=== PATIENT | male | born 1970 | race Caucasian/White ===

== ENCOUNTER 2021-03-19 14:47 | Inpatient (IN) | payer OTHER ==
[2021-03-19] MEDS ORDERED: BUPRENORPHINE HCL 150 MCG, BUPRENORPHINE HCL 75 MCG BC ONE (15:36)
[2021-03-19] MEDS ORDERED: MAGNESIUM HYDROX 2400MG/30ML ORAL SUSPENSION 30 ML CUP PO PRN (15:36)
[2021-03-19] MEDS ORDERED: MENTHOL/PHENOL 1 EACH UD MM PRN (15:36)
[2021-03-19] MEDS ORDERED: MAG HYDROX/AL HYDROX/SIMETH 30 ML UNIT-DOSE CUP PO PRN (15:36)
[2021-03-19] MEDS ORDERED: BISMUTH SUBSALICYLATE 524 MG/30 ML PO PRN (15:36)
[2021-03-19] MEDS ORDERED: diazePAM 5 MG TABLET PO PRN (15:36)
[2021-03-19] MEDS ORDERED: ONDANSETRON *ODT* 4 MG TABLET SL PRN (15:36)
[2021-03-19] MEDS ORDERED: cloNIDine HCL 0.1 MG TABLET PO ONE (15:36)
[2021-03-19] MEDS ORDERED: ACETAMINOPHEN 325 MG TABLET (FP) PO PRN ×2 (15:36)
[2021-03-19] MEDS ORDERED: MAGNESIUM CITRATE 300 ML BOTTLE PO PRN (15:36)
[2021-03-19 15:55] VITALS: BMI 27.6
[2021-03-20] MEDS: hydrOXYzine PAMOATE 25 MG CAPSULE (FP) PO SCH ×7 (01:49→22:21)
[2021-03-20] MEDS: NICOTINE 14 MG/24 HOURS TOPICAL PATCH TD SCH ×2 (01:49→11:10)
[2021-03-20] MEDS: PRENATAL VITAMINS W/ FOLIC ACID TABLET (FP) PO SCH ×2 (01:49→11:10)
[2021-03-20] MEDS ORDERED: METHOCARBAMOL 500 MG TABLET ONE (01:52)
[2021-03-20] MEDS ORDERED: IBUPROFEN 400 MG TABLET (FP) PO ONE (01:53)
[2021-03-20] MEDS: THIAMINE HCL 100 MG TABLET (FP) PO SCH ×2 (02:00→22:21)
[2021-03-20] MEDS: MELATONIN 5 MG TABLETS PO SCH ×2 (02:10→22:21)
[2021-03-20] MEDS: IBUPROFEN 400 MG TABLET (FP) PO PRN (02:23)
[2021-03-20] MEDS ORDERED: hydrOXYzine PAMOATE 25 MG CAPSULE (FP) PO ONE ×4 (02:30→10:46)
[2021-03-20] MEDS ORDERED: BUPRENORPHINE HCL 150 MCG FILM BC ONE ×4 (06:10→17:17)
[2021-03-20] MEDS ORDERED: BUPRENORPHINE HCL 75 MCG FILM BC ONE ×4 (06:11→17:17)
[2021-03-20] MEDS: BUPRENORPHINE HCL 150 MCG, BUPRENORPHINE HCL 75 MCG BC SCH ×2 (06:33→17:54)
[2021-03-20 10:58] LABS: HEMATOCRIT 36.9 % (35.4-49); HEMOGLOBIN 12.6 GM/dL (11.7-16.9); MEAN PLT VOLUME 9.5 fl (7.5-11.1); PLATELET COUNT 148 10^3/uL (134-434); RBC 4.06 M/mm3 (4.00-5.60); RDW 14.6 % (11.9-15.9); WHITE BLOOD COUNT 5.4 K/mm3 (4.0-10.0)
[2021-03-20] MEDS ORDERED: BUPRENORPHINE HCL 150 MCG, BUPRENORPHINE HCL 75 MCG BC ONE (11:00)
[2021-03-20 11:02] LABS: ALBUMIN 2.9 g/dl (3.4-5.0); BLOOD UREA NITROGEN 14.2 mg/dL (7-18); CALCIUM 7.9 mg/dL (8.5-10.1)
[2021-03-20 11:05] LABS: CREATININE 0.9 mg/dL (0.55-1.3)
[2021-03-20 11:06] LABS: BILIRUBIN,TOTAL 0.4 mg/dL (0.2-1); TOT PROT 5.7 g/dl (6.4-8.2)
[2021-03-20 11:52] LABS: HIV INTERPRETATION NEGATIVE (NEGATIVE)
[2021-03-20] MEDS: TOLNAFTATE 1% POWDER 45 GM POW TP SCH ×2 (13:25→22:44)
[2021-03-20] MEDS: BACITRACIN 0.9 GM PACKET TP SCH (13:26)
[2021-03-20] MEDS: METHOCARBAMOL 500 MG TABLET PO PRN (22:23)
[2021-03-20] MEDS: cloNIDine HCL 0.1 MG TABLET PO PRN (22:24)
[2021-03-21] MEDS: hydrOXYzine PAMOATE 25 MG CAPSULE (FP) PO SCH ×5 (05:31→22:13)
[2021-03-21] MEDS: BUPRENORPHINE HCL 450 MCG FILM BC SCH ×2 (05:32→17:29)
[2021-03-21] MEDS: PRENATAL VITAMINS W/ FOLIC ACID TABLET (FP) PO SCH (10:20)
[2021-03-21] MEDS: BACITRACIN 0.9 GM PACKET TP SCH (10:20)
[2021-03-21] MEDS: METHOCARBAMOL 500 MG TABLET PO PRN ×2 (10:20→22:16)
[2021-03-21] MEDS: IBUPROFEN 400 MG TABLET (FP) PO PRN ×2 (10:22→17:33)
[2021-03-21] MEDS: NICOTINE 14 MG/24 HOURS TOPICAL PATCH TD SCH (10:24)
[2021-03-21] MEDS: TOLNAFTATE 1% POWDER 45 GM POW TP SCH ×2 (10:24→22:40)
[2021-03-21] MEDS ORDERED: POTASSIUM CHLORIDE TABS 20 MEQ TABLET.ER (FP) PO ONE (12:33)
[2021-03-21] MEDS: CALCIUM 500MG/VIT-D 200 UNITS COMBO TABLET (FP) PO SCH ×2 (13:01→22:13)
[2021-03-21] MEDS: MELATONIN 5 MG TABLETS PO SCH (22:13)
[2021-03-21] MEDS: THIAMINE HCL 100 MG TABLET (FP) PO SCH (22:13)
[2021-03-21] MEDS: cloNIDine HCL 0.1 MG TABLET PO PRN (22:16)
[2021-03-22] MEDS: BUPRENORPHINE/NALOXONE 4 MG/1 MG FILM PACKET SL SCH ×2 (06:08→18:30)
[2021-03-22] MEDS: hydrOXYzine PAMOATE 25 MG CAPSULE (FP) PO SCH ×5 (06:08→21:39)
[2021-03-22] MEDS: METHOCARBAMOL 500 MG TABLET PO PRN ×3 (06:09→21:42)
[2021-03-22] MEDS: IBUPROFEN 400 MG TABLET (FP) PO PRN ×2 (06:09→15:43)
[2021-03-22] MEDS: PRENATAL VITAMINS W/ FOLIC ACID TABLET (FP) PO SCH (10:45)
[2021-03-22] MEDS: NICOTINE 14 MG/24 HOURS TOPICAL PATCH TD SCH (10:45)
[2021-03-22] MEDS: BACITRACIN 0.9 GM PACKET TP SCH (10:45)
[2021-03-22] MEDS: CALCIUM 500MG/VIT-D 200 UNITS COMBO TABLET (FP) PO SCH ×2 (10:45→21:39)
[2021-03-22] MEDS: cloNIDine HCL 0.1 MG TABLET PO PRN ×2 (10:45→15:43)
[2021-03-22] MEDS: TOLNAFTATE 1% POWDER 45 GM POW TP SCH ×2 (11:03→21:41)
[2021-03-22] MEDS ORDERED: ALBUTEROL SO4 HFA INHALER IH PRN (11:41)
[2021-03-22] MEDS: MELATONIN 5 MG TABLETS PO SCH (21:39)
[2021-03-22] MEDS: THIAMINE HCL 100 MG TABLET (FP) PO SCH (21:39)
[2021-03-23] MEDS: METHOCARBAMOL 500 MG TABLET PO PRN ×3 (05:22→20:01)
[2021-03-23] MEDS: hydrOXYzine PAMOATE 25 MG CAPSULE (FP) PO SCH ×5 (05:23→22:05)
[2021-03-23] MEDS ORDERED: BUPRENORPHINE/NALOXONE 8 MG/2 MG FILM PACKET SL ONE ×2 (06:00→18:00)
[2021-03-23] MEDS: PRENATAL VITAMINS W/ FOLIC ACID TABLET (FP) PO SCH (10:41)
[2021-03-23] MEDS: BACITRACIN 0.9 GM PACKET TP SCH (10:41)
[2021-03-23] MEDS: CALCIUM 500MG/VIT-D 200 UNITS COMBO TABLET (FP) PO SCH ×2 (10:41→22:05)
[2021-03-23] MEDS: TOLNAFTATE 1% POWDER 45 GM POW TP SCH ×2 (10:42→22:06)
[2021-03-23] MEDS: NICOTINE 10 MG CARTRIDGE (INHALER) IH PRN ×2 (10:43→19:58)
[2021-03-23] MEDS: NICOTINE 14 MG/24 HOURS TOPICAL PATCH TD SCH (10:43)
[2021-03-23] MEDS: IBUPROFEN 400 MG TABLET (FP) PO PRN ×2 (13:59→22:08)
[2021-03-23] MEDS: THIAMINE HCL 100 MG TABLET (FP) PO SCH (22:05)
[2021-03-23] MEDS: MELATONIN 5 MG TABLETS PO SCH (22:06)
[2021-03-24] MEDS: hydrOXYzine PAMOATE 25 MG CAPSULE (FP) PO SCH ×2 (05:29→10:41)
[2021-03-24] MEDS ORDERED: BUPRENORPHINE/NALOXONE 8 MG/2 MG FILM PACKET SL SCH ×2 (06:00→14:00)
[2021-03-24 09:23] VITALS: BP 137/78; PULSE 65; TEMP 96.9
[2021-03-24] MEDS: TOLNAFTATE 1% POWDER 45 GM POW TP SCH (10:41)
[2021-03-24] MEDS: NICOTINE 14 MG/24 HOURS TOPICAL PATCH TD SCH (10:41)
[2021-03-24] MEDS: CALCIUM 500MG/VIT-D 200 UNITS COMBO TABLET (FP) PO SCH (10:41)
[2021-03-24] MEDS: PRENATAL VITAMINS W/ FOLIC ACID TABLET (FP) PO SCH (10:41)
[2021-03-24] MEDS: BACITRACIN 0.9 GM PACKET TP SCH (10:41)
[2021-03-24] MEDS: METHOCARBAMOL 500 MG TABLET PO PRN (10:43)
[2021-03-24] MEDS: IBUPROFEN 400 MG TABLET (FP) PO PRN (10:43)
== END 2021-03-24 11:43 | disposition home or self-care (01) | DRG 773 ==
LOC: YASAS 14:47 → Y6N 03-20 10:48
PROVIDERS: ADMIT Allergy & Immunology; ATTEND Allergy & Immunology
PROC: HZ2ZZZZ Detoxification Services for Substance Abuse Treatment (ICD-10-PCS; principal; 2021-03-20)
DX: F11.23 Opioid dependence with withdrawal (principal); F14.20 Cocaine dependence, uncomplicated; F17.210 Nicotine dependence, cigarettes, uncomplicated; F41.8 Other specified anxiety disorders; F32.A Depression, unspecified; E83.51 Hypocalcemia; E87.6 Hypokalemia; G62.9 Polyneuropathy, unspecified; J45.909 Unspecified asthma, uncomplicated; M54.50 Low back pain, unspecified; G89.29 Other chronic pain; Z59.00 Homelessness unspecified
CPT/HCPCS: 36415; 80053; 84132; 85027; 86780; 87389; 93005; 93010; C9803; J0735; U0003; U0005

== ENCOUNTER 2021-04-24 11:59 | Inpatient (IN) | payer OTHER ==
[2021-04-24] MEDS ORDERED: methaDONE HCL 10 MG TABLET (FOR DETOX USE ONLY) PO ONE (13:09)
[2021-04-24] MEDS ORDERED: cloNIDine HCL 0.1 MG TABLET PO PRN (13:09)
[2021-04-24] MEDS ORDERED: NICOTINE 10 MG CARTRIDGE (INHALER) IH PRN (13:09)
[2021-04-24] MEDS ORDERED: MAGNESIUM HYDROX 2400MG/30ML ORAL SUSPENSION 30 ML CUP PO PRN (13:09)
[2021-04-24] MEDS ORDERED: MAGNESIUM CITRATE 300 ML BOTTLE PO PRN (13:09)
[2021-04-24] MEDS ORDERED: BISMUTH SUBSALICYLATE 262 MG/15 ML BTL PO PRN (13:09)
[2021-04-24] MEDS ORDERED: LOPERAMIDE HCL 2 MG CAPSULE PO PRN (13:09)
[2021-04-24] MEDS ORDERED: MENTHOL/PHENOL 1 EACH UD MM PRN (13:09)
[2021-04-24] MEDS ORDERED: ACETAMINOPHEN 325 MG TABLET (FP) PO PRN ×2 (13:09)
[2021-04-24] MEDS ORDERED: MAG HYDROX/AL HYDROX/SIMETH 30 ML UNIT-DOSE CUP PO PRN (13:09)
[2021-04-24] MEDS ORDERED: ONDANSETRON *ODT* 4 MG TABLET SL PRN (13:09)
[2021-04-24 16:01] VITALS: BMI 26.4
[2021-04-24] MEDS ORDERED: cloNIDine HCL 0.1 MG TABLET PO ONE (17:16)
[2021-04-24] MEDS ORDERED: BUPRENORPHINE HCL 150 MCG FILM BC ONE (18:52)
[2021-04-24] MEDS ORDERED: BUPRENORPHINE HCL 75 MCG FILM BC ONE (18:53)
[2021-04-24] MEDS ORDERED: BUPRENORPHINE HCL 150 MCG, BUPRENORPHINE HCL 75 MCG BC ONE (19:00)
[2021-04-24] MEDS: IBUPROFEN 400 MG TABLET (FP) PO PRN ×2 (19:02→22:35)
[2021-04-24] MEDS: hydrOXYzine PAMOATE 25 MG CAPSULE (FP) PO SCH ×3 (19:02→22:35)
[2021-04-24] MEDS: NICOTINE 14 MG/24 HOURS TOPICAL PATCH TD SCH (19:25)
[2021-04-24] MEDS: PRENATAL VITAMINS W/ FOLIC ACID TABLET (FP) PO SCH (19:26)
[2021-04-24] MEDS: MELATONIN 5 MG TABLETS PO SCH (22:34)
[2021-04-24] MEDS: diazePAM 5 MG TABLET PO PRN (22:34)
[2021-04-24] MEDS: THIAMINE HCL 100 MG TABLET (FP) PO SCH (23:41)
[2021-04-25] MEDS ORDERED: BUPRENORPHINE HCL 150 MCG FILM BC ONE ×2 (04:58→16:45)
[2021-04-25] MEDS ORDERED: BUPRENORPHINE HCL 75 MCG FILM BC ONE ×2 (04:59→16:45)
[2021-04-25] MEDS: BUPRENORPHINE HCL 150 MCG, BUPRENORPHINE HCL 75 MCG BC SCH ×2 (06:00→17:54)
[2021-04-25] MEDS: hydrOXYzine PAMOATE 25 MG CAPSULE (FP) PO SCH ×5 (06:00→22:45)
[2021-04-25] MEDS: PRENATAL VITAMINS W/ FOLIC ACID TABLET (FP) PO SCH (10:51)
[2021-04-25] MEDS: NICOTINE 14 MG/24 HOURS TOPICAL PATCH TD SCH (10:51)
[2021-04-25] MEDS: diazePAM 5 MG TABLET PO PRN ×2 (11:23→22:45)
[2021-04-25 11:37] LABS: HEMATOCRIT 34.7 % (35.4-49); MCH 31.1 pg (25.7-33.7); MCHC 34.6 g/dl (32.0-35.9); PLATELET COUNT 154 10^3/uL (134-434); RBC 3.85 M/mm3 (4.00-5.60); RDW 14.5 % (11.9-15.9); WHITE BLOOD COUNT 7.5 K/mm3 (4.0-10.0)
[2021-04-25 12:48] LABS: ALBUMIN 2.9 g/dl (3.4-5.0); BLOOD UREA NITROGEN 22.2 mg/dL (7-18)
[2021-04-25 12:53] LABS: BILIRUBIN,TOTAL 0.4 mg/dL (0.2-1); TOT PROT 5.4 g/dl (6.4-8.2)
[2021-04-25] MEDS: METHOCARBAMOL 500 MG TABLET PO PRN ×2 (17:55→22:46)
[2021-04-25] MEDS: THIAMINE HCL 100 MG TABLET (FP) PO SCH (22:44)
[2021-04-25] MEDS: MELATONIN 5 MG TABLETS PO SCH (22:44)
[2021-04-26] MEDS ORDERED: BUPRENORPHINE HCL 450 MCG FILM BC SCH (06:00)
[2021-04-26 06:04] VITALS: BP 113/69; PULSE 70; TEMP 98.1
[2021-04-26] MEDS: hydrOXYzine PAMOATE 25 MG CAPSULE (FP) PO SCH (06:39)
[2021-04-26] MEDS ORDERED: methaDONE HCL 10 MG TABLET (FOR DETOX USE ONLY) PO ONE (10:00)
[2021-04-27] MEDS ORDERED: BUPRENORPHINE/NALOXONE 4 MG/1 MG FILM PACKET SL SCH (06:00)
[2021-04-28] MEDS ORDERED: BUPRENORPHINE/NALOXONE 8 MG/2 MG FILM PACKET SL ONE (06:00)
[2021-04-28] MEDS ORDERED: methaDONE HCL 10 MG TABLET (FOR DETOX USE ONLY) PO ONE (10:00)
== END 2021-04-26 09:34 | disposition left against medical advice (07) | DRG 770 ==
LOC: YASAS 11:59 → Y6N 17:43
PROVIDERS: ADMIT Allergy & Immunology; ATTEND Allergy & Immunology
PROC: HZ2ZZZZ Detoxification Services for Substance Abuse Treatment (ICD-10-PCS; principal; 2021-04-24)
DX: F11.23 Opioid dependence with withdrawal (principal); F14.20 Cocaine dependence, uncomplicated; F12.20 Cannabis dependence, uncomplicated; F17.210 Nicotine dependence, cigarettes, uncomplicated; F31.9 Bipolar disorder, unspecified; F19.24 Other psychoactive substance dependence with psychoactive substance-induced mood disorder; G62.9 Polyneuropathy, unspecified; J45.909 Unspecified asthma, uncomplicated; M54.50 Low back pain, unspecified; G89.29 Other chronic pain
CPT/HCPCS: 36415; 80053; 85027; 86780; C9803-CS; J0735; U0003; U0005

== ENCOUNTER 2021-08-24 15:31 | Inpatient (IN) | payer OTHER ==
[2021-08-24 16:01] VITALS: BMI 25.0
[2021-08-24] MEDS ORDERED: MAGNESIUM CITRATE 300 ML BOTTLE PO PRN (16:53)
[2021-08-24] MEDS ORDERED: MAG HYDROX/AL HYDROX/SIMETH 30 ML UNIT-DOSE CUP PO PRN (16:53)
[2021-08-24] MEDS ORDERED: NICOTINE 10 MG CARTRIDGE (INHALER) IH PRN (16:53)
[2021-08-24] MEDS ORDERED: BENZOCAINE/MENTHOL (CHLORASEPTIC ) LOZENGE MM PRN (16:53)
[2021-08-24] MEDS ORDERED: IBUPROFEN 400 MG TABLET (FP) PO PRN (16:53)
[2021-08-24] MEDS ORDERED: MAGNESIUM HYDROX 2400MG/30ML ORAL SUSPENSION 30 ML CUP PO PRN (16:53)
[2021-08-24] MEDS ORDERED: DICYCLOMINE HCL 10 MG CAPSULE PO PRN (16:53)
[2021-08-24] MEDS ORDERED: ACETAMINOPHEN 325 MG TABLET (FP) PO PRN ×2 (16:53)
[2021-08-24] MEDS ORDERED: BISMUTH SUBSALICYLATE 524 MG/30 ML PO PRN (16:53)
[2021-08-24] MEDS ORDERED: ONDANSETRON *ODT* 4 MG TABLET SL PRN (16:53)
[2021-08-24] MEDS ORDERED: LOPERAMIDE HCL 2 MG CAPSULE PO PRN (16:53)
[2021-08-24] MEDS: hydrOXYzine PAMOATE 25 MG CAPSULE (FP) PO SCH ×2 (18:16→22:03)
[2021-08-24] MEDS: MELATONIN 5 MG TABLETS PO SCH (22:03)
[2021-08-24] MEDS: THIAMINE HCL 100 MG TABLET (FP) PO SCH (22:03)
[2021-08-24] MEDS: METHOCARBAMOL 500 MG TABLET PO PRN (22:04)
[2021-08-25] MEDS: hydrOXYzine PAMOATE 25 MG CAPSULE (FP) PO SCH ×5 (06:45→22:02)
[2021-08-25] MEDS ORDERED: ALBUTEROL SO4 HFA INHALER IH PRN (07:47)
[2021-08-25] MEDS ORDERED: BUPRENORPHINE HCL 150 MCG, BUPRENORPHINE HCL 75 MCG BC PRN (10:14)
[2021-08-25] MEDS ORDERED: BUPRENORPHINE HCL 150 MCG, BUPRENORPHINE HCL 75 MCG BC ONE (10:14)
[2021-08-25] MEDS ORDERED: cloNIDine HCL 0.1 MG TABLET PO ONE (10:14)
[2021-08-25] MEDS: PRENATAL VITAMINS W/ FOLIC ACID TABLET (FP) PO SCH (10:20)
[2021-08-25] MEDS ORDERED: BUPRENORPHINE HCL 75 MCG FILM BC ONE (11:02)
[2021-08-25] MEDS ORDERED: BUPRENORPHINE HCL 150 MCG FILM BC ONE (11:02)
[2021-08-25 12:13] LABS: HEMATOCRIT 35.5 % (35.4-49); HEMOGLOBIN 11.9 GM/dL (11.7-16.9); MCH 29.9 pg (25.7-33.7); MCHC 33.5 g/dl (32.0-35.9); MEAN CELL VOLUME 89.3 fl (80-96); MEAN PLT VOLUME 9.2 fl (7.5-11.1); PLATELET COUNT 151 10^3/uL (134-434); RBC 3.97 M/mm3 (4.00-5.60); RDW 15.1 % (11.9-15.9); WHITE BLOOD COUNT 6.9 K/mm3 (4.0-10.0)
[2021-08-25 13:42] LABS: BLOOD UREA NITROGEN 17.7 mg/dL (7-18)
[2021-08-25 13:43] LABS: ALBUMIN 2.9 g/dl (3.4-5.0); CALCIUM 7.9 mg/dL (8.5-10.1)
[2021-08-25 13:44] LABS: CREATININE 1.1 mg/dL (0.55-1.3)
[2021-08-25 13:45] LABS: BILIRUBIN,TOTAL 0.2 mg/dL (0.2-1); TOT PROT 5.4 g/dl (6.4-8.2)
[2021-08-25] MEDS ORDERED: cloNIDine HCL 0.1 MG TABLET PO PRN (14:15)
[2021-08-25] MEDS: METHOCARBAMOL 500 MG TABLET PO PRN (22:02)
[2021-08-25] MEDS: THIAMINE HCL 100 MG TABLET (FP) PO SCH (22:02)
[2021-08-25] MEDS: MELATONIN 5 MG TABLETS PO SCH (22:02)
[2021-08-25] MEDS: diazePAM 5 MG TABLET PO PRN (22:04)
[2021-08-26] MEDS ORDERED: BUPRENORPHINE HCL 150 MCG, BUPRENORPHINE HCL 75 MCG BC PRN
[2021-08-26] MEDS ORDERED: BUPRENORPHINE HCL 150 MCG FILM BC ONE ×2 (04:15→16:52)
[2021-08-26] MEDS ORDERED: BUPRENORPHINE HCL 75 MCG FILM BC ONE ×2 (04:16→16:52)
[2021-08-26] MEDS: hydrOXYzine PAMOATE 25 MG CAPSULE (FP) PO SCH ×5 (07:58→22:05)
[2021-08-26] MEDS: BUPRENORPHINE HCL 150 MCG, BUPRENORPHINE HCL 75 MCG BC SCH ×2 (07:59→17:39)
[2021-08-26] MEDS: PRENATAL VITAMINS W/ FOLIC ACID TABLET (FP) PO SCH (10:44)
[2021-08-26] MEDS: METHOCARBAMOL 500 MG TABLET PO PRN ×2 (10:46→22:07)
[2021-08-26 21:18] VITALS: PULSE 72
[2021-08-26] MEDS: THIAMINE HCL 100 MG TABLET (FP) PO SCH (22:05)
[2021-08-26] MEDS: MELATONIN 5 MG TABLETS PO SCH (22:05)
[2021-08-26] MEDS: IBUPROFEN 600 MG TABLET (FP) PO PRN (22:07)
[2021-08-26] MEDS: diazePAM 5 MG TABLET PO PRN (22:11)
[2021-08-27] MEDS: hydrOXYzine PAMOATE 25 MG CAPSULE (FP) PO SCH (05:37)
[2021-08-27] MEDS: IBUPROFEN 600 MG TABLET (FP) PO PRN (05:39)
[2021-08-27] MEDS: METHOCARBAMOL 500 MG TABLET PO PRN (05:39)
[2021-08-27] MEDS ORDERED: BUPRENORPHINE HCL 450 MCG FILM BC SCH (06:00)
[2021-08-27 06:52] VITALS: BP 103/62; TEMP 97.3
[2021-08-28] MEDS ORDERED: BUPRENORPHINE/NALOXONE 4 MG/1 MG FILM PACKET SL SCH (06:00)
[2021-08-29] MEDS ORDERED: BUPRENORPHINE/NALOXONE 8 MG/2 MG FILM PACKET SL ONE (06:00)
== END 2021-08-27 09:10 | disposition left against medical advice (07) | DRG 770 ==
LOC: YASAS 15:31 → Y3N 17:43
PROVIDERS: ADMIT Allergy & Immunology; ATTEND Surgery
PROC: HZ2ZZZZ Detoxification Services for Substance Abuse Treatment (ICD-10-PCS; principal; 2021-08-24)
DX: F11.23 Opioid dependence with withdrawal (principal); F14.20 Cocaine dependence, uncomplicated; F12.20 Cannabis dependence, uncomplicated; F17.210 Nicotine dependence, cigarettes, uncomplicated; F41.9 Anxiety disorder, unspecified; F32.A Depression, unspecified; G62.9 Polyneuropathy, unspecified; G47.00 Insomnia, unspecified; R73.03 Prediabetes; R63.4 Abnormal weight loss; Z68.25 Body mass index [BMI] 25.0-25.9, adult
CPT/HCPCS: 36415; 80053; 83036; 85027; 86780; C9803-CS; J0735; U0003; U0005

== ENCOUNTER 2021-09-04 13:11 | Inpatient (IN) | payer OTHER ==
[2021-09-04 13:48] VITALS: BMI 25.8
[2021-09-04] MEDS ORDERED: MAGNESIUM HYDROX 2400MG/30ML ORAL SUSPENSION 30 ML CUP PO PRN (17:08)
[2021-09-04] MEDS ORDERED: NICOTINE POLACRILEX 2 MG GUM BUC PRN (17:08)
[2021-09-04] MEDS ORDERED: ACETAMINOPHEN 325 MG TABLET (FP) PO PRN ×2 (17:08)
[2021-09-04] MEDS ORDERED: MAGNESIUM CITRATE 300 ML BOTTLE PO PRN (17:08)
[2021-09-04] MEDS ORDERED: BENZOCAINE/MENTHOL (CHLORASEPTIC ) LOZENGE MM PRN (17:08)
[2021-09-04] MEDS ORDERED: ONDANSETRON *ODT* 4 MG TABLET SL PRN (17:08)
[2021-09-04] MEDS ORDERED: BISMUTH SUBSALICYLATE 524 MG/30 ML PO PRN (17:08)
[2021-09-04] MEDS ORDERED: LOPERAMIDE HCL 2 MG CAPSULE PO PRN (17:08)
[2021-09-04] MEDS ORDERED: DICYCLOMINE HCL 10 MG CAPSULE PO PRN (17:08)
[2021-09-04] MEDS ORDERED: MAG HYDROX/AL HYDROX/SIMETH 30 ML UNIT-DOSE CUP PO PRN (17:08)
[2021-09-04] MEDS ORDERED: ALBUTEROL SO4 HFA INHALER IH PRN (17:15)
[2021-09-04] MEDS ORDERED: NALOXONE (NARCAN) HCL 4 MG/0.1 ML SPRAY NS PRN (17:15)
[2021-09-04] MEDS: PRENATAL VITAMINS W/ FOLIC ACID TABLET (FP) PO SCH (20:19)
[2021-09-04] MEDS: hydrOXYzine PAMOATE 25 MG CAPSULE (FP) PO SCH ×2 (20:19→22:35)
[2021-09-04] MEDS: THIAMINE HCL 100 MG TABLET (FP) PO SCH (22:35)
[2021-09-04] MEDS: MELATONIN 5 MG TABLETS PO SCH (22:35)
[2021-09-04] MEDS: IBUPROFEN 400 MG TABLET (FP) PO PRN (22:40)
[2021-09-04] MEDS: METHOCARBAMOL 500 MG TABLET PO PRN (22:40)
[2021-09-05] MEDS: hydrOXYzine PAMOATE 25 MG CAPSULE (FP) PO SCH ×5 (07:16→22:24)
[2021-09-05] MEDS: PRENATAL VITAMINS W/ FOLIC ACID TABLET (FP) PO SCH (10:54)
[2021-09-05] MEDS: IBUPROFEN 600 MG TABLET (FP) PO PRN (15:13)
[2021-09-05] MEDS: METHOCARBAMOL 500 MG TABLET PO PRN (15:13)
[2021-09-05] MEDS: THIAMINE HCL 100 MG TABLET (FP) PO SCH (22:24)
[2021-09-05] MEDS: MELATONIN 5 MG TABLETS PO SCH (22:24)
[2021-09-05] MEDS: IBUPROFEN 400 MG TABLET (FP) PO PRN (22:26)
[2021-09-06] MEDS: hydrOXYzine PAMOATE 25 MG CAPSULE (FP) PO SCH ×5 (05:45→21:16)
[2021-09-06] MEDS: METHOCARBAMOL 500 MG TABLET PO PRN ×2 (10:35→16:53)
[2021-09-06] MEDS: IBUPROFEN 600 MG TABLET (FP) PO PRN ×2 (10:35→16:53)
[2021-09-06] MEDS: diazePAM 5 MG TABLET PO PRN (10:35)
[2021-09-06] MEDS: PRENATAL VITAMINS W/ FOLIC ACID TABLET (FP) PO SCH (10:36)
[2021-09-06] MEDS ORDERED: cloNIDine HCL 0.1 MG TABLET PO PRN ×2 (12:32→12:48)
[2021-09-06] MEDS ORDERED: methaDONE HCL 10 MG TABLET (FOR DETOX USE ONLY) ONE (14:23)
[2021-09-06 16:52] VITALS: RESP 18
[2021-09-06] MEDS: MELATONIN 5 MG TABLETS PO SCH (21:16)
[2021-09-06] MEDS: THIAMINE HCL 100 MG TABLET (FP) PO SCH (21:16)
[2021-09-07] MEDS: IBUPROFEN 400 MG TABLET (FP) PO PRN (05:50)
[2021-09-07] MEDS: hydrOXYzine PAMOATE 25 MG CAPSULE (FP) PO SCH ×2 (05:52→09:14)
[2021-09-07 08:58] VITALS: BP 137/82; PULSE 80; TEMP 97.8
[2021-09-07] MEDS: PRENATAL VITAMINS W/ FOLIC ACID TABLET (FP) PO SCH (09:13)
[2021-09-07] MEDS: METHOCARBAMOL 500 MG TABLET PO PRN (09:13)
[2021-09-07] MEDS: diazePAM 5 MG TABLET PO PRN (09:15)
[2021-09-07] MEDS ORDERED: methaDONE HCL 10 MG TABLET (FOR DETOX USE ONLY) PO ONE (10:00)
== END 2021-09-07 12:21 | disposition home or self-care (01) | DRG 773 ==
LOC: YASAS 13:11 → Y3N 17:57
PROVIDERS: ADMIT Allergy & Immunology; ATTEND Surgery
PROC: HZ2ZZZZ Detoxification Services for Substance Abuse Treatment (ICD-10-PCS; principal; 2021-09-04)
DX: F11.23 Opioid dependence with withdrawal (principal); F14.20 Cocaine dependence, uncomplicated; F12.20 Cannabis dependence, uncomplicated; F17.213 Nicotine dependence, cigarettes, with withdrawal; J45.909 Unspecified asthma, uncomplicated
CPT/HCPCS: C9803-CS; U0003; U0005

== ENCOUNTER 2021-09-16 11:15 | Inpatient (IN) | payer OTHER ==
[2021-09-16 12:25] VITALS: BMI 27.3
[2021-09-16] MEDS ORDERED: ONDANSETRON *ODT* 4 MG TABLET SL PRN (13:17)
[2021-09-16] MEDS ORDERED: NALOXONE HCL (KLOXXADO) 8 MG SPRAY NS PRN (13:17)
[2021-09-16] MEDS ORDERED: BENZOCAINE/MENTHOL (CHLORASEPTIC ) LOZENGE MM PRN (13:17)
[2021-09-16] MEDS ORDERED: LOPERAMIDE HCL 2 MG CAPSULE PO PRN (13:17)
[2021-09-16] MEDS ORDERED: IBUPROFEN 400 MG TABLET (FP) PO PRN (13:17)
[2021-09-16] MEDS ORDERED: BISMUTH SUBSALICYLATE 524 MG/30 ML PO PRN (13:17)
[2021-09-16] MEDS ORDERED: DICYCLOMINE HCL 10 MG CAPSULE PO PRN (13:17)
[2021-09-16] MEDS ORDERED: cloNIDine HCL 0.1 MG TABLET PO PRN (13:17)
[2021-09-16] MEDS ORDERED: MAGNESIUM CITRATE 300 ML BOTTLE PO PRN (13:17)
[2021-09-16] MEDS ORDERED: NICOTINE 10 MG CARTRIDGE (INHALER) IH PRN (13:17)
[2021-09-16] MEDS ORDERED: ACETAMINOPHEN 325 MG TABLET (FP) PO PRN ×2 (13:17)
[2021-09-16] MEDS ORDERED: MAGNESIUM HYDROX 2400MG/30ML ORAL SUSPENSION 30 ML CUP PO PRN (13:17)
[2021-09-16] MEDS ORDERED: MAG HYDROX/AL HYDROX/SIMETH 30 ML UNIT-DOSE CUP PO PRN (13:17)
[2021-09-16] MEDS ORDERED: methaDONE HCL 10 MG TABLET (FOR DETOX USE ONLY) PO ONE (14:00)
[2021-09-16] MEDS: hydrOXYzine PAMOATE 25 MG CAPSULE (FP) PO SCH ×3 (14:37→23:24)
[2021-09-16] MEDS: PRENATAL VITAMINS W/ FOLIC ACID TABLET (FP) PO SCH (14:37)
[2021-09-16] MEDS: IBUPROFEN 600 MG TABLET (FP) PO PRN (14:37)
[2021-09-16] MEDS: ALBUTEROL SO4 HFA INHALER IH SCH ×3 (14:39→23:24)
[2021-09-16] MEDS: NICOTINE 14 MG/24 HOURS TOPICAL PATCH TD SCH (14:41)
[2021-09-16] MEDS: MELATONIN 5 MG TABLETS PO SCH (23:24)
[2021-09-16] MEDS: THIAMINE HCL 100 MG TABLET (FP) PO SCH (23:25)
[2021-09-17] MEDS: ALBUTEROL SO4 HFA INHALER IH SCH ×6 (01:42→22:27)
[2021-09-17] MEDS: hydrOXYzine PAMOATE 25 MG CAPSULE (FP) PO SCH ×5 (07:12→22:25)
[2021-09-17] MEDS: PRENATAL VITAMINS W/ FOLIC ACID TABLET (FP) PO SCH (11:15)
[2021-09-17] MEDS: NICOTINE 14 MG/24 HOURS TOPICAL PATCH TD SCH (11:19)
[2021-09-17 12:03] LABS: HEMATOCRIT 40.3 % (35.4-49); HEMOGLOBIN 13.4 GM/dL (11.7-16.9); MCH 29.4 pg (25.7-33.7); MCHC 33.3 g/dl (32.0-35.9); MEAN CELL VOLUME 88.3 fl (80-96); MEAN PLT VOLUME 9.1 fl (7.5-11.1); PLATELET COUNT 190 10^3/uL (134-434); RBC 4.56 M/mm3 (4.00-5.60); RDW 14.5 % (11.9-15.9); WHITE BLOOD COUNT 9.8 K/mm3 (4.0-10.0)
[2021-09-17 12:25] LABS: CALCIUM 8.2 mg/dL (8.5-10.1)
[2021-09-17 12:26] LABS: BLOOD UREA NITROGEN 15.5 mg/dL (7-18)
[2021-09-17 12:30] LABS: BILIRUBIN,TOTAL 0.8 mg/dL (0.2-1); CREATININE 1.1 mg/dL (0.55-1.3)
[2021-09-17] MEDS: METHOCARBAMOL 500 MG TABLET PO PRN (22:25)
[2021-09-17] MEDS: THIAMINE HCL 100 MG TABLET (FP) PO SCH (22:25)
[2021-09-17] MEDS: MELATONIN 5 MG TABLETS PO SCH (22:26)
[2021-09-18] MEDS: ALBUTEROL SO4 HFA INHALER IH SCH ×6 (04:54→22:31)
[2021-09-18] MEDS: hydrOXYzine PAMOATE 25 MG CAPSULE (FP) PO SCH ×5 (05:01→22:30)
[2021-09-18] MEDS: IBUPROFEN 600 MG TABLET (FP) PO PRN ×2 (05:02→17:35)
[2021-09-18] MEDS ORDERED: methaDONE HCL 10 MG TABLET (FOR DETOX USE ONLY) PO ONE (10:00)
[2021-09-18] MEDS: METHOCARBAMOL 500 MG TABLET PO PRN ×2 (11:33→22:30)
[2021-09-18] MEDS: NICOTINE 14 MG/24 HOURS TOPICAL PATCH TD SCH (11:33)
[2021-09-18] MEDS: PRENATAL VITAMINS W/ FOLIC ACID TABLET (FP) PO SCH (11:33)
[2021-09-18] MEDS: MELATONIN 5 MG TABLETS PO SCH (22:30)
[2021-09-18] MEDS: THIAMINE HCL 100 MG TABLET (FP) PO SCH (22:30)
[2021-09-19] MEDS: ALBUTEROL SO4 HFA INHALER IH SCH ×3 (01:39→10:51)
[2021-09-19] MEDS: hydrOXYzine PAMOATE 25 MG CAPSULE (FP) PO SCH ×2 (05:49→10:51)
[2021-09-19] MEDS: IBUPROFEN 600 MG TABLET (FP) PO PRN ×2 (05:50→10:52)
[2021-09-19] MEDS: NICOTINE 14 MG/24 HOURS TOPICAL PATCH TD SCH (10:51)
[2021-09-19] MEDS: PRENATAL VITAMINS W/ FOLIC ACID TABLET (FP) PO SCH (10:51)
[2021-09-19 13:28] VITALS: BP 110/61; PULSE 54; RESP 19; TEMP 97.4
[2021-09-20] MEDS ORDERED: methaDONE HCL 10 MG TABLET (FOR DETOX USE ONLY) PO ONE (10:00)
== END 2021-09-19 14:49 | disposition left against medical advice (07) | DRG 770 ==
LOC: YASAS 11:15 → Y3N 13:42
PROVIDERS: ADMIT Allergy & Immunology; ATTEND Surgery
PROC: HZ2ZZZZ Detoxification Services for Substance Abuse Treatment (ICD-10-PCS; principal; 2021-09-16)
DX: F11.23 Opioid dependence with withdrawal (principal); F10.230 Alcohol dependence with withdrawal, uncomplicated; F14.20 Cocaine dependence, uncomplicated; F13.20 Sedative, hypnotic or anxiolytic dependence, uncomplicated; F12.20 Cannabis dependence, uncomplicated; F17.210 Nicotine dependence, cigarettes, uncomplicated; F41.8 Other specified anxiety disorders; F32.A Depression, unspecified; G62.9 Polyneuropathy, unspecified; J45.30 Mild persistent asthma, uncomplicated; M54.50 Low back pain, unspecified; G89.29 Other chronic pain; Z59.02 Unsheltered homelessness
CPT/HCPCS: 36415; 80053; 85027; 86780; 87811; C9803-CS; U0003; U0005

== ENCOUNTER 2021-10-09 19:16 | Inpatient (IN) | payer OTHER ==
[2021-10-09 21:28] VITALS: BMI 25.2
[2021-10-09] MEDS ORDERED: LOPERAMIDE HCL 2 MG CAPSULE PO PRN (22:25)
[2021-10-09] MEDS ORDERED: NALOXONE HCL 0.4 MG/ML VIAL IM PRN (22:25)
[2021-10-09] MEDS ORDERED: NICOTINE 10 MG CARTRIDGE (INHALER) IH PRN (22:25)
[2021-10-09] MEDS ORDERED: MAGNESIUM HYDROX 2400MG/30ML ORAL SUSPENSION 30 ML CUP PO PRN (22:25)
[2021-10-09] MEDS ORDERED: BENZOCAINE/MENTHOL (CHLORASEPTIC ) LOZENGE MM PRN (22:25)
[2021-10-09] MEDS ORDERED: cloNIDine HCL 0.1 MG TABLET PO PRN (22:25)
[2021-10-09] MEDS ORDERED: IBUPROFEN 600 MG TABLET (FP) PO PRN (22:25)
[2021-10-09] MEDS ORDERED: IBUPROFEN 400 MG TABLET (FP) PO PRN (22:25)
[2021-10-09] MEDS ORDERED: methaDONE HCL 10 MG TABLET (FOR DETOX USE ONLY) PO ONE (22:25)
[2021-10-09] MEDS ORDERED: DICYCLOMINE HCL 10 MG CAPSULE PO PRN (22:25)
[2021-10-09] MEDS ORDERED: MAG HYDROX/AL HYDROX/SIMETH 30 ML UNIT-DOSE CUP PO PRN (22:25)
[2021-10-09] MEDS ORDERED: ACETAMINOPHEN 325 MG TABLET (FP) PO PRN ×2 (22:25)
[2021-10-09] MEDS ORDERED: BISMUTH SUBSALICYLATE 524 MG/30 ML PO PRN (22:25)
[2021-10-09] MEDS ORDERED: MAGNESIUM CITRATE 300 ML BOTTLE PO PRN (22:25)
[2021-10-09] MEDS ORDERED: methaDONE HCL 10 MG TABLET (FOR DETOX USE ONLY) ONE (22:48)
[2021-10-09] MEDS: METHOCARBAMOL 500 MG TABLET PO PRN (23:58)
[2021-10-10] MEDS: PRENATAL VITAMINS W/ FOLIC ACID TABLET (FP) PO SCH (10:23)
[2021-10-10] MEDS: METHOCARBAMOL 500 MG TABLET PO PRN ×2 (10:26→22:15)
[2021-10-10] MEDS: NICOTINE 7 MG/24 HOURS TOPICAL PATCH TD SCH (10:28)
[2021-10-10] MEDS: diazePAM 5 MG TABLET PO PRN ×2 (12:55→22:15)
[2021-10-10 15:31] LABS: HEMATOCRIT 34.8 % (35.4-49); HEMOGLOBIN 11.5 GM/dL (11.7-16.9); MCH 29.4 pg (25.7-33.7); MEAN CELL VOLUME 89.2 fl (80-96); MEAN PLT VOLUME 9.7 fl (7.5-11.1); PLATELET COUNT 169 10^3/uL (134-434); RDW 14.5 % (11.9-15.9); WHITE BLOOD COUNT 6.5 K/mm3 (4.0-10.0)
[2021-10-10 15:33] LABS: ALBUMIN 2.8 g/dl (3.4-5.0); BLOOD UREA NITROGEN 24.3 mg/dL (7-18)
[2021-10-10 15:36] LABS: CREATININE 1.1 mg/dL (0.55-1.3)
[2021-10-10 15:38] LABS: BILIRUBIN,TOTAL 0.2 mg/dL (0.2-1); TOT PROT 5.4 g/dl (6.4-8.2)
[2021-10-10 16:27] LABS: HIV INTERPRETATION NEGATIVE (NEGATIVE)
[2021-10-10] MEDS ORDERED: THIAMINE HCL 100 MG TABLET (FP) PO SCH (22:00)
[2021-10-10] MEDS ORDERED: MELATONIN 5 MG TABLETS PO SCH (22:00)
[2021-10-11 07:10] VITALS: RESP 18
[2021-10-11] MEDS ORDERED: methaDONE HCL 10 MG TABLET (FOR DETOX USE ONLY) PO ONE (10:00)
[2021-10-11] MEDS: PRENATAL VITAMINS W/ FOLIC ACID TABLET (FP) PO SCH (10:15)
[2021-10-11] MEDS: METHOCARBAMOL 500 MG TABLET PO PRN (10:16)
[2021-10-11] MEDS: diazePAM 5 MG TABLET PO PRN (10:16)
[2021-10-11] MEDS: NICOTINE 7 MG/24 HOURS TOPICAL PATCH TD SCH (10:19)
[2021-10-11 13:12] VITALS: BP 136/79; PULSE 66; TEMP 98.2
[2021-10-13] MEDS ORDERED: methaDONE HCL 10 MG TABLET (FOR DETOX USE ONLY) PO ONE (10:00)
== END 2021-10-11 16:07 | disposition home or self-care (01) | DRG 773 ==
LOC: YASAS 19:16 → Y3N 22:30
PROVIDERS: ADMIT Allergy & Immunology; ATTEND Surgery
PROC: HZ2ZZZZ Detoxification Services for Substance Abuse Treatment (ICD-10-PCS; principal; 2021-10-09)
DX: F11.23 Opioid dependence with withdrawal (principal); F10.230 Alcohol dependence with withdrawal, uncomplicated; F14.20 Cocaine dependence, uncomplicated; F17.210 Nicotine dependence, cigarettes, uncomplicated; J45.30 Mild persistent asthma, uncomplicated; R79.89 Other specified abnormal findings of blood chemistry
CPT/HCPCS: 36415; 80053; 85027; 86780; 87389; 87811; C9803-CS; U0003; U0005

== ENCOUNTER 2022-02-25 11:29 | Inpatient (IN) | payer OTHER ==
[2022-02-25 11:50] VITALS: BMI 25.8
[2022-02-25] MEDS ORDERED: MAGNESIUM HYDROX 2400MG/30ML ORAL SUSPENSION 30 ML CUP PO PRN (13:37)
[2022-02-25] MEDS ORDERED: MAG HYDROX/AL HYDROX/SIMETH 30 ML UNIT-DOSE CUP PO PRN (13:37)
[2022-02-25] MEDS ORDERED: LOPERAMIDE HCL 2 MG CAPSULE PO PRN (13:37)
[2022-02-25] MEDS ORDERED: BENZOCAINE/MENTHOL (CHLORASEPTIC ) LOZENGE MM PRN (13:37)
[2022-02-25] MEDS ORDERED: NICOTINE 10 MG CARTRIDGE (INHALER) IH PRN (13:37)
[2022-02-25] MEDS ORDERED: POLYETHYLENE GLYCOL (HEALTHYLAX) 3350 17 GM PACKET PO PRN (13:37)
[2022-02-25] MEDS ORDERED: hydrOXYzine PAMOATE 25 MG CAPSULE (FP) PO PRN (13:37)
[2022-02-25] MEDS ORDERED: guaiFENesin 200 MG/10 ML 10 ML UNIT-DOSE CUPS PO PRN (13:37)
[2022-02-25] MEDS ORDERED: P-EPHED 60MG/TRIPROLIDI 2.5MG TABLET PO PRN (13:37)
[2022-02-25] MEDS ORDERED: ACETAMINOPHEN 325 MG TABLET (FP) PO PRN (13:37)
[2022-02-25] MEDS: PRENATAL VITAMINS W/ FOLIC ACID TABLET (FP) PO SCH (16:43)
[2022-02-25] MEDS: NICOTINE 7 MG/24 HOURS TOPICAL PATCH TD SCH (16:43)
[2022-02-25 17:27] LABS: HEMATOCRIT 43.4 % (35.4-49); MCH 28.9 pg (25.7-33.7); MCHC 32.2 g/dl (32.0-35.9); MEAN CELL VOLUME 89.9 fl (80-96); MEAN PLT VOLUME 9.2 fl (7.5-11.1); PLATELET COUNT 184 10^3/uL (134-434); RBC 4.83 M/mm3 (4.00-5.60); RDW 15.7 % (11.9-15.9); WHITE BLOOD COUNT 7.1 K/mm3 (4.0-10.0)
[2022-02-25 17:31] LABS: CALCIUM 8.3 mg/dL (8.5-10.1)
[2022-02-25 17:32] LABS: BLOOD UREA NITROGEN 26.3 mg/dL (7-18)
[2022-02-25 17:35] LABS: CREATININE 1.2 mg/dL (0.55-1.3)
[2022-02-25 17:36] LABS: BILIRUBIN,TOTAL 0.3 mg/dL (0.2-1); TOT PROT 7.2 g/dl (6.4-8.2)
[2022-02-25 17:55] LABS: SYPHILIS W/ RPR CONF NON-REACTIVE (NONREACTIVE)
[2022-02-25] MEDS: THIAMINE HCL 100 MG TABLET (FP) PO SCH (21:22)
[2022-02-25] MEDS: MELATONIN 5 MG TABLETS PO SCH (21:22)
[2022-02-25] MEDS: IBUPROFEN 400 MG TABLET (FP) PO PRN (21:23)
[2022-02-26] MEDS: PRENATAL VITAMINS W/ FOLIC ACID TABLET (FP) PO SCH (09:34)
[2022-02-26] MEDS: NICOTINE 7 MG/24 HOURS TOPICAL PATCH TD SCH (09:35)
[2022-02-26] MEDS: methaDONE HCL 10 MG TABLET PO SCH (09:35)
[2022-02-26] MEDS: IBUPROFEN 400 MG TABLET (FP) PO PRN ×2 (09:37→21:23)
[2022-02-26 17:41] LABS: PH,URINE 7.5 (5.0-8.0); URINE APPEARANCE CLEAR; URINE BILIRUBIN NEGATIVE (NEGATIVE); URINE COLOR YELLOW; URINE GLUCOSE (UA) NEGATIVE (NEGATIVE); URINE KETONE NEGATIVE (NEGATIVE); URINE LEUK ESTERASE NEGATIVE (NEGATIVE); URINE NITRITE NEGATIVE (NEGATIVE); URINE PROTEIN NEGATIVE (NEGATIVE); URINE UROBILINOGEN 0.2 mg/dL (0.2-1.0)
[2022-02-26] MEDS: MELATONIN 5 MG TABLETS PO SCH (21:22)
[2022-02-26] MEDS: THIAMINE HCL 100 MG TABLET (FP) PO SCH (21:22)
[2022-02-27] MEDS: methaDONE HCL 10 MG TABLET PO SCH (06:11)
[2022-02-27] MEDS: IBUPROFEN 400 MG TABLET (FP) PO PRN (06:14)
[2022-02-27 07:10] VITALS: BP 138/86; PULSE 61; RESP 16; TEMP 97.6
[2022-02-27] MEDS: PRENATAL VITAMINS W/ FOLIC ACID TABLET (FP) PO SCH (10:03)
[2022-02-27] MEDS: NICOTINE 7 MG/24 HOURS TOPICAL PATCH TD SCH (10:03)
== END 2022-02-27 11:35 | disposition left against medical advice (07) | DRG 770 ==
LOC: YASAS 11:29 → Y5N 15:58
PROVIDERS: ADMIT Allergy & Immunology; ATTEND Psychiatry & Neurology Pain Medicine
PROC: HZ42ZZZ Group Counseling for Substance Abuse Treatment, Cognitive-Behavioral (ICD-10-PCS; principal; 2022-02-25)
DX: F11.20 Opioid dependence, uncomplicated (principal); F10.20 Alcohol dependence, uncomplicated; F14.20 Cocaine dependence, uncomplicated; F12.20 Cannabis dependence, uncomplicated; F17.210 Nicotine dependence, cigarettes, uncomplicated; F20.9 Schizophrenia, unspecified; F41.9 Anxiety disorder, unspecified; F39 Unspecified mood [affective] disorder; G62.9 Polyneuropathy, unspecified; J45.909 Unspecified asthma, uncomplicated; M54.50 Low back pain, unspecified; G89.29 Other chronic pain; Z59.00 Homelessness unspecified
CPT/HCPCS: 36415; 80053; 81003; 85027; 86780; 86803; 87811; C9803-CS; U0003; U0005

== ENCOUNTER 2023-02-15 15:39 | Inpatient (IN) | payer OTHER ==
[2023-02-15 16:39] VITALS: BMI 24.9
[2023-02-15] MEDS ORDERED: ALBUTEROL SO4 HFA INHALER IH PRN (17:03)
[2023-02-15] MEDS ORDERED: NALOXONE HCL 0.4 MG/ML VIAL IM PRN (17:16)
[2023-02-15] MEDS ORDERED: BENZONATATE 200 MG CAPSULE PO PRN (17:16)
[2023-02-15] MEDS ORDERED: ONDANSETRON *ODT* 4 MG TABLET SL PRN (17:16)
[2023-02-15] MEDS ORDERED: LOPERAMIDE HCL 2 MG CAPSULE PO PRN (17:16)
[2023-02-15] MEDS ORDERED: BENZOCAINE/MENTHOL (CHLORASEPTIC ) LOZENGE MM PRN (17:16)
[2023-02-15] MEDS ORDERED: P-EPHED 60MG/TRIPROLIDI 2.5MG TABLET PO PRN (17:16)
[2023-02-15] MEDS ORDERED: DICYCLOMINE HCL 10 MG CAPSULE PO PRN (17:16)
[2023-02-15] MEDS ORDERED: guaiFENesin 600 MG TABLET.ER (FP) PO PRN (17:16)
[2023-02-15] MEDS ORDERED: ACETAMINOPHEN 325 MG TABLET (FP) PO PRN (17:16)
[2023-02-15] MEDS ORDERED: MAG HYDROX/AL HYDROX/SIMETH 30 ML UNIT-DOSE CUP PO PRN (17:16)
[2023-02-15] MEDS ORDERED: BISMUTH SUBSALICYLATE 524 MG/30 ML PO PRN (17:16)
[2023-02-15] MEDS ORDERED: NALOXONE HCL (KLOXXADO) 8 MG SPRAY NS PRN (17:16)
[2023-02-15] MEDS ORDERED: POLYETHYLENE GLYCOL (HEALTHYLAX) 3350 17 GM PACKET PO PRN (17:16)
[2023-02-15] MEDS ORDERED: IBUPROFEN 400 MG TABLET (FP) PO PRN (17:16)
[2023-02-15] MEDS ORDERED: NICOTINE POLACRILEX 2 MG GUM BUC PRN (17:16)
[2023-02-15] MEDS ORDERED: MAGNESIUM HYDROX 2400MG/30ML ORAL SUSPENSION 30 ML CUP PO PRN (17:16)
[2023-02-15] MEDS ORDERED: cloNIDine HCL 0.1 MG TABLET PO PRN (17:18)
[2023-02-15] MEDS: hydrOXYzine PAMOATE 25 MG CAPSULE (FP) PO PRN (18:04)
[2023-02-15] MEDS: METHOCARBAMOL 500 MG TABLET PO PRN (18:04)
[2023-02-15] MEDS: THIAMINE HCL 100 MG TABLET (FP) PO SCH (22:09)
[2023-02-15] MEDS: MELATONIN 5 MG TABLETS PO SCH (22:10)
[2023-02-16 08:30] LABS: BLOOD UREA NITROGEN 23.3 mg/dL (7-18); CALCIUM 8.1 mg/dL (8.5-10.1)
[2023-02-16 08:33] LABS: CREATININE 0.9 mg/dL (0.55-1.3)
[2023-02-16 08:35] LABS: BILIRUBIN,TOTAL 0.2 mg/dL (0.2-1); TOT PROT 5.8 g/dl (6.4-8.2)
[2023-02-16 08:44] LABS: HEMATOCRIT 36.5 % (35.4-49); MCH 29.4 pg (25.7-33.7); PLATELET COUNT 155 10^3/uL (134-434); RDW 14.9 % (11.9-15.9); WHITE BLOOD COUNT 5.8 K/mm3 (4.0-10.0)
[2023-02-16] MEDS ORDERED: cloNIDine HCL 0.1 MG TABLET PO PRN (09:37)
[2023-02-16] MEDS ORDERED: methaDONE HCL 10 MG TABLET (FOR DETOX USE ONLY) PO ONE (10:00)
[2023-02-16] MEDS: IBUPROFEN 600 MG TABLET (FP) PO PRN ×2 (10:17→17:07)
[2023-02-16] MEDS: METHOCARBAMOL 500 MG TABLET PO PRN ×2 (10:17→21:13)
[2023-02-16] MEDS: PRENATAL VITAMINS W/ FOLIC ACID TABLET (FP) PO SCH (10:17)
[2023-02-16] MEDS: NICOTINE 14 MG/24 HOURS TOPICAL PATCH TD SCH (10:19)
[2023-02-16] MEDS: hydrOXYzine PAMOATE 25 MG CAPSULE (FP) PO PRN (21:13)
[2023-02-16] MEDS: THIAMINE HCL 100 MG TABLET (FP) PO SCH (21:13)
[2023-02-16] MEDS: MELATONIN 5 MG TABLETS PO SCH (22:47)
[2023-02-17] MEDS: NICOTINE 14 MG/24 HOURS TOPICAL PATCH TD SCH ×2 (09:40→10:19)
[2023-02-17] MEDS: METHOCARBAMOL 500 MG TABLET PO PRN ×2 (09:42→20:27)
[2023-02-17] MEDS: PRENATAL VITAMINS W/ FOLIC ACID TABLET (FP) PO SCH (09:42)
[2023-02-17] MEDS: IBUPROFEN 600 MG TABLET (FP) PO PRN (13:01)
[2023-02-17] MEDS: THIAMINE HCL 100 MG TABLET (FP) PO SCH (22:18)
[2023-02-17] MEDS: MELATONIN 5 MG TABLETS PO SCH (22:18)
[2023-02-17] MEDS: hydrOXYzine PAMOATE 25 MG CAPSULE (FP) PO PRN (22:19)
[2023-02-18] MEDS: PRENATAL VITAMINS W/ FOLIC ACID TABLET (FP) PO SCH (09:04)
[2023-02-18] MEDS: METHOCARBAMOL 500 MG TABLET PO PRN ×2 (09:05→21:20)
[2023-02-18] MEDS: NICOTINE 14 MG/24 HOURS TOPICAL PATCH TD SCH (09:06)
[2023-02-18] MEDS ORDERED: methaDONE HCL 10 MG TABLET (FOR DETOX USE ONLY) PO ONE (10:00)
[2023-02-18] MEDS: MELATONIN 5 MG TABLETS PO SCH (21:20)
[2023-02-18] MEDS: THIAMINE HCL 100 MG TABLET (FP) PO SCH (21:20)
[2023-02-18] MEDS: hydrOXYzine PAMOATE 25 MG CAPSULE (FP) PO PRN (21:20)
[2023-02-19] MEDS: hydrOXYzine PAMOATE 25 MG CAPSULE (FP) PO PRN ×2 (09:25→22:09)
[2023-02-19] MEDS: METHOCARBAMOL 500 MG TABLET PO PRN ×2 (09:25→22:09)
[2023-02-19] MEDS: PRENATAL VITAMINS W/ FOLIC ACID TABLET (FP) PO SCH (09:26)
[2023-02-19] MEDS: NICOTINE 14 MG/24 HOURS TOPICAL PATCH TD SCH (09:26)
[2023-02-19] MEDS: THIAMINE HCL 100 MG TABLET (FP) PO SCH (22:09)
[2023-02-19] MEDS: MELATONIN 5 MG TABLETS PO SCH (22:10)
[2023-02-20] MEDS: hydrOXYzine PAMOATE 25 MG CAPSULE (FP) PO PRN ×2 (09:02→22:10)
[2023-02-20] MEDS: PRENATAL VITAMINS W/ FOLIC ACID TABLET (FP) PO SCH (09:02)
[2023-02-20] MEDS: METHOCARBAMOL 500 MG TABLET PO PRN ×2 (09:02→22:10)
[2023-02-20] MEDS: NICOTINE 14 MG/24 HOURS TOPICAL PATCH TD SCH (09:03)
[2023-02-20] MEDS ORDERED: methaDONE HCL 10 MG TABLET (FOR DETOX USE ONLY) PO ONE (10:00)
[2023-02-20] MEDS: IBUPROFEN 600 MG TABLET (FP) PO PRN ×2 (11:54→17:55)
[2023-02-20 17:39] VITALS: RESP 18
[2023-02-20] MEDS: MELATONIN 5 MG TABLETS PO SCH (22:10)
[2023-02-20] MEDS: THIAMINE HCL 100 MG TABLET (FP) PO SCH (22:10)
[2023-02-21 09:22] VITALS: BP 124/70; PULSE 80; TEMP 97.5
[2023-02-21] MEDS: NICOTINE 14 MG/24 HOURS TOPICAL PATCH TD SCH (10:28)
[2023-02-21] MEDS: PRENATAL VITAMINS W/ FOLIC ACID TABLET (FP) PO SCH (10:28)
== END 2023-02-21 11:17 | disposition home or self-care (01) | DRG 773 ==
LOC: YASAS 15:39 → Y6N 17:33
PROVIDERS: ADMIT Allergy & Immunology; ATTEND Surgery
PROC: HZ2ZZZZ Detoxification Services for Substance Abuse Treatment (ICD-10-PCS; principal; 2023-02-15)
DX: F11.23 Opioid dependence with withdrawal (principal); F14.20 Cocaine dependence, uncomplicated; F12.10 Cannabis abuse, uncomplicated; F17.210 Nicotine dependence, cigarettes, uncomplicated; G62.9 Polyneuropathy, unspecified; J45.20 Mild intermittent asthma, uncomplicated; M54.50 Low back pain, unspecified; G89.29 Other chronic pain; Z86.59 Personal history of other mental and behavioral disorders
CPT/HCPCS: 36415; 80053; 84520; 85027; 86780; 87635

== ENCOUNTER 2023-04-14 09:28 | Inpatient (IN) | payer OTHER ==
[2023-04-14 10:34] VITALS: BMI 24.5
[2023-04-14] MEDS ORDERED: NALOXONE HCL (KLOXXADO) 8 MG SPRAY NS PRN (11:37)
[2023-04-14] MEDS ORDERED: guaiFENesin 600 MG TABLET.ER (FP) PO PRN (11:37)
[2023-04-14] MEDS ORDERED: ONDANSETRON *ODT* 4 MG TABLET SL PRN (11:37)
[2023-04-14] MEDS ORDERED: NICOTINE POLACRILEX 2 MG GUM BUC PRN (11:37)
[2023-04-14] MEDS ORDERED: METHOCARBAMOL 500 MG TABLET PO PRN (11:37)
[2023-04-14] MEDS ORDERED: BENZOCAINE/MENTHOL (CHLORASEPTIC ) LOZENGE MM PRN (11:37)
[2023-04-14] MEDS ORDERED: IBUPROFEN 400 MG TABLET (FP) PO PRN (11:37)
[2023-04-14] MEDS ORDERED: MAGNESIUM HYDROX 2400MG/30ML ORAL SUSPENSION 30 ML CUP PO PRN (11:37)
[2023-04-14] MEDS ORDERED: BENZONATATE 200 MG CAPSULE PO PRN (11:37)
[2023-04-14] MEDS ORDERED: LOPERAMIDE HCL 2 MG CAPSULE PO PRN (11:37)
[2023-04-14] MEDS ORDERED: MAG HYDROX/AL HYDROX/SIMETH 30 ML UNIT-DOSE CUP PO PRN (11:37)
[2023-04-14] MEDS ORDERED: DICYCLOMINE HCL 10 MG CAPSULE PO PRN (11:37)
[2023-04-14] MEDS ORDERED: POLYETHYLENE GLYCOL (HEALTHYLAX) 3350 17 GM PACKET PO PRN (11:37)
[2023-04-14] MEDS ORDERED: BISMUTH SUBSALICYLATE 262 MG/15 ML BTL PO PRN (11:37)
[2023-04-14] MEDS ORDERED: NALOXONE HCL 0.4 MG/ML VIAL IM PRN (11:37)
[2023-04-14] MEDS ORDERED: BUPRENORPHINE HCL 150 MCG, BUPRENORPHINE HCL 75 MCG BC PRN (11:40)
[2023-04-14] MEDS ORDERED: BUPRENORPHINE HCL 150 MCG FILM BC ONE (12:18)
[2023-04-14] MEDS ORDERED: BUPRENORPHINE HCL 75 MCG FILM BC ONE (12:19)
[2023-04-14] MEDS: cloNIDine HCL 0.1 MG TABLET PO ONE (12:26)
[2023-04-14] MEDS: BUPRENORPHINE HCL 150 MCG, BUPRENORPHINE HCL 75 MCG BC ONE (12:27)
[2023-04-14] MEDS: MELATONIN 5 MG TABLETS PO SCH (22:16)
[2023-04-14] MEDS: diazePAM 5 MG TABLET PO PRN (22:16)
[2023-04-14] MEDS: THIAMINE HCL 100 MG TABLET (FP) PO SCH (22:16)
[2023-04-15] MEDS ORDERED: BUPRENORPHINE HCL 150 MCG, BUPRENORPHINE HCL 75 MCG BC PRN
[2023-04-15] MEDS: BUPRENORPHINE HCL 150 MCG, BUPRENORPHINE HCL 75 MCG BC SCH (05:24)
[2023-04-15] MEDS: NICOTINE 14 MG/24 HOURS TOPICAL PATCH TD SCH (10:39)
[2023-04-15] MEDS: PRENATAL VITAMINS W/ FOLIC ACID TABLET (FP) PO SCH (10:39)
[2023-04-15 12:50] LABS: HEMATOCRIT 39.7 % (35.4-49); HEMOGLOBIN 13.5 GM/dL (11.7-16.9); MEAN CELL VOLUME 88.3 fl (80-96); MEAN PLT VOLUME 9.5 fl (7.5-11.1); PLATELET COUNT 144 10^3/uL (134-434); RBC 4.49 M/mm3 (4.00-5.60); WHITE BLOOD COUNT 3.7 K/mm3 (4.0-10.0)
[2023-04-15 13:06] LABS: POTASSIUM 3.7 mmol/L (3.5-5.1)
[2023-04-15 13:09] LABS: ALBUMIN 3.8 g/dl (3.4-5.0); BLOOD UREA NITROGEN 17.6 mg/dL (7-18); CALCIUM 8.5 mg/dL (8.5-10.1)
[2023-04-15 13:12] LABS: CREATININE 1.1 mg/dL (0.55-1.3)
[2023-04-15 13:14] LABS: BILIRUBIN,TOTAL 0.3 mg/dL (0.2-1); TOT PROT 7.2 g/dl (6.4-8.2)
[2023-04-15] MEDS ORDERED: ALBUTEROL SO4 HFA INHALER IH PRN (15:31)
[2023-04-15] MEDS: cloNIDine HCL 0.1 MG TABLET PO PRN (17:25)
[2023-04-15] MEDS: IBUPROFEN 600 MG TABLET (FP) PO PRN (22:19)
[2023-04-16] MEDS: BUPRENORPHINE HCL 450 MCG FILM BC SCH (06:05)
[2023-04-16] MEDS: ACETAMINOPHEN 325 MG TABLET (FP) PO PRN (20:47)
[2023-04-16] MEDS: hydrOXYzine PAMOATE 25 MG CAPSULE (FP) PO PRN (20:48)
[2023-04-17] MEDS: BUPRENORPHINE/NALOXONE 4 MG/1 MG FILM PACKET SL SCH (06:09)
[2023-04-17 09:16] VITALS: RESP 16
[2023-04-17 13:13] VITALS: BP 131/82; PULSE 54; TEMP 98
[2023-04-18] MEDS ORDERED: BUPRENORPHINE/NALOXONE 8 MG/2 MG FILM PACKET SL ONE (06:00)
== END 2023-04-17 15:58 | disposition home or self-care (01) | DRG 773 ==
LOC: YASAS 09:28 → Y6N 12:07
PROVIDERS: ADMIT Allergy & Immunology; ATTEND Surgery
PROC: HZ2ZZZZ Detoxification Services for Substance Abuse Treatment (ICD-10-PCS; principal; 2023-04-14)
DX: F11.23 Opioid dependence with withdrawal (principal); F14.20 Cocaine dependence, uncomplicated; F12.20 Cannabis dependence, uncomplicated; F17.210 Nicotine dependence, cigarettes, uncomplicated; F20.9 Schizophrenia, unspecified; F31.9 Bipolar disorder, unspecified; F41.9 Anxiety disorder, unspecified; G62.9 Polyneuropathy, unspecified; J45.20 Mild intermittent asthma, uncomplicated
CPT/HCPCS: 36415; 80053; 80305; 80307; 85027; 86780; 87635; 93005; 93010

== ENCOUNTER 2023-07-28 23:02 | Inpatient (IN) | payer OTHER ==
[2023-07-28 23:49] VITALS: BMI 25.7
[2023-07-28] MEDS ORDERED: ALBUTEROL SO4 HFA INHALER IH PRN (23:57)
[2023-07-29] MEDS ORDERED: IBUPROFEN 400 MG TABLET (FP) PO PRN (00:01)
[2023-07-29] MEDS ORDERED: guaiFENesin 600 MG TABLET.ER (FP) PO PRN (00:01)
[2023-07-29] MEDS ORDERED: BISMUTH SUBSALICYLATE 524 MG/30 ML PO PRN (00:01)
[2023-07-29] MEDS ORDERED: ONDANSETRON *ODT* 4 MG TABLET SL PRN (00:01)
[2023-07-29] MEDS ORDERED: NALOXONE HCL 0.4 MG/ML VIAL IM PRN (00:01)
[2023-07-29] MEDS ORDERED: NICOTINE POLACRILEX 2 MG GUM BUC PRN (00:01)
[2023-07-29] MEDS ORDERED: BENZOCAINE/MENTHOL (CHLORASEPTIC ) LOZENGE MM PRN (00:01)
[2023-07-29] MEDS ORDERED: POLYETHYLENE GLYCOL (HEALTHYLAX) 3350 17 GM PACKET PO PRN (00:01)
[2023-07-29] MEDS ORDERED: MAG HYDROX/AL HYDROX/SIMETH 30 ML UNIT-DOSE CUP PO PRN (00:01)
[2023-07-29] MEDS ORDERED: BENZONATATE 200 MG CAPSULE PO PRN (00:01)
[2023-07-29] MEDS ORDERED: MAGNESIUM HYDROX 2400MG/30ML ORAL SUSPENSION 30 ML CUP PO PRN (00:01)
[2023-07-29] MEDS ORDERED: NALOXONE (NARCAN) HCL 4 MG/0.1 ML SPRAY NS PRN (00:01)
[2023-07-29] MEDS ORDERED: LOPERAMIDE HCL 2 MG CAPSULE PO PRN (00:01)
[2023-07-29] MEDS ORDERED: ACETAMINOPHEN 325 MG TABLET (FP) PO PRN (00:01)
[2023-07-29] MEDS ORDERED: DICYCLOMINE HCL 10 MG CAPSULE PO PRN (00:01)
[2023-07-29] MEDS ORDERED: NICOTINE POLACRILEX 2 MG LOZENGE BC PRN (00:01)
[2023-07-29] MEDS ORDERED: P-EPHED 60MG/TRIPROLIDI 2.5MG TABLET PO PRN (00:01)
[2023-07-29] MEDS: methaDONE HCL 10 MG TABLET (FOR DETOX USE ONLY) PO ONE (00:29)
[2023-07-29] MEDS: MELATONIN 5 MG TABLETS PO ONE (00:30)
[2023-07-29] MEDS: PRENATAL VITAMINS W/ FOLIC ACID TABLET (FP) PO SCH (10:50)
[2023-07-29] MEDS: THIAMINE 100 MG TABLET PO SCH (22:21)
[2023-07-29] MEDS: cloNIDine HCL 0.1 MG TABLET PO PRN (22:21)
[2023-07-29] MEDS: MELATONIN 5 MG TABLETS PO SCH (22:21)
[2023-07-29] MEDS: METHOCARBAMOL 500 MG TABLET PO PRN (22:23)
[2023-07-30] MEDS: methaDONE HCL 10 MG TABLET (FOR DETOX USE ONLY) PO ONE (09:53)
[2023-07-30 13:31] LABS: HEMATOCRIT 39.6 % (35.4-49); HEMOGLOBIN 13.2 GM/dL (11.7-16.9); MCH 29.2 pg (25.7-33.7); MCHC 33.2 g/dl (32.0-35.9); MEAN CELL VOLUME 88.1 fl (80-96); MEAN PLT VOLUME 8.7 fl (7.5-11.1); PLATELET COUNT 176 10^3/uL (134-434); RDW 16.1 % (11.9-15.9); WHITE BLOOD COUNT 5.2 K/mm3 (4.0-10.0)
[2023-07-30 13:39] LABS: ALBUMIN 3.3 g/dl (3.4-5.0); CALCIUM 8.3 mg/dL (8.5-10.1)
[2023-07-30 13:41] LABS: CREATININE 0.9 mg/dL (0.55-1.3)
[2023-07-30 13:43] LABS: BILIRUBIN,TOTAL 0.7 mg/dL (0.2-1); TOT PROT 6.2 g/dl (6.4-8.2)
[2023-07-30] MEDS: IBUPROFEN 600 MG TABLET (FP) PO PRN (21:39)
[2023-07-31 08:51] VITALS: BP 113/68; PULSE 61; RESP 17; TEMP 98.9
[2023-08-01] MEDS ORDERED: methaDONE HCL 10 MG TABLET (FOR DETOX USE ONLY) PO ONE (10:00)
== END 2023-07-31 10:59 | disposition left against medical advice (07) | DRG 770 ==
LOC: YASAS 23:02 → Y6N 07-29 08:15 → Y3N 07-29 08:28
PROVIDERS: ADMIT Allergy & Immunology; ATTEND Surgery
PROC: HZ2ZZZZ Detoxification Services for Substance Abuse Treatment (ICD-10-PCS; principal; 2023-07-29)
DX: F11.23 Opioid dependence with withdrawal (principal); F14.20 Cocaine dependence, uncomplicated; F12.20 Cannabis dependence, uncomplicated; F17.210 Nicotine dependence, cigarettes, uncomplicated; J45.20 Mild intermittent asthma, uncomplicated; M54.50 Low back pain, unspecified; G89.29 Other chronic pain
CPT/HCPCS: 36415; 80053; 80305; 85027; 86780